=== PATIENT | female | born 1970 | race Caucasian/White ===

== ENCOUNTER 2017-04-19 21:49 | Inpatient (IN) ==
[2017-04-19] MEDS ORDERED: GI Cocktail 40 ML EACH PO ONE (22:33)
[2017-04-19] MEDS ORDERED: Ondansetron 4 MG/2 ML VIAL IVP ONE (22:33)
[2017-04-19] MEDS ORDERED: Pantoprazole 40 MG VIAL IVP ONE (22:33)
[2017-04-19] MEDS ORDERED: 0.9 % Sodium Chloride 1,000 ML IVC ONE (22:33)
[2017-04-19] MEDS ORDERED: *HR* Morphine 2 MG/ML SYRINGE IVP ONE (22:33)
--- NOTE | 2017-04-19 22:36 | Emergency Department Note ---
Disposition Clinical Impression: Atypical chest pain, Hiatal hernia, Status post endoscopy, Hypokalemia Barretts esophagus Qualifiers: Bell's esophagus type: with dysplasia of unspecified degree Qualified Code(s ): K22.719 - Bell's esophagus with dysplasia, unspecified Nausea & vomiting Qualifiers: Vomiting type: unspecified Vomiting Intractability: unspecified Qualified Code( s): R11.2 - Nausea with vomiting, unspecified Disposition: Home, Self-Care Condition: Fair Time of Disposition: 01:53 Chest Pain HPI - General Chief Complaint: ED Chest Pain Stated Complaint: sternum pain has hernia not heart related Time Seen by Provider: 04/19/17 22:21 Source: patient Limitations: no limitations Vital Signs Reviewed: Yes Nursing Notes Reviewed: Yes - History of Present Illness HPI Narrative: 47-year-old female history of Bell's esophagus hiatal hernia, diabetes, hypertension, hyperlipidemia, no history of CAD presents complaining of 8 out of 10, aching burning substernal and epigastric chest pain and abdominal pain. Patient also has a history of a cholecystectomy appendectomy and partial hysterectomy, she states that she was evaluated for chest pain a few days ago, she had an upper endoscopy and biopsy performed by Dr. Perkins this showed evidence of Bell's esophagus, she was treated is treated with a PPI, she states that her pain has been unbearable she try to call Dr. Mckeon's office but is not able to get her pain under control so she presents the emergency department for evaluation she is no history of recent left heart catheter about 2 years and she has been evaluated. Denies fever chills. Cough hemoptysis hematuria hematemesis or melena. Pt complaint: chest pain Onset (ago): day(s) Duration: intermittent Onset: during rest, after eating Pain Location: substernal, epigastric Severity: severe Severity scale (1-10): 10 Quality: aching, sharp Pain Radiation: none Improves with: nothing Worsens with: nothing Associated symptoms: Reports: nausea, vomiting. Denies: diaphoresis, dyspnea, sense of impending doom, fever, cough Treatments prior to arrival chest pain: none - Related Data Home Medications Medication Instructions Recorded Confirmed Cetirizine HCl [All Day Allergy] 10 mg PO DAILY 04/15/17 04/15/17 Dicyclomine [Bentyl] 20 mg PO QID 04/15/17 04/15/17 Duloxetine HCl [Cymbalta] 60 mg PO BID 04/15/17 04/15/17 Ergocalciferol (VITAMIN D2) 50,000 unit PO QWEEK 04/15/17 04/15/17 [Vitamin D2] Fluticasone Propionate Nasal 50 mcg NS DAILY 04/15/17 04/15/17 [Flonase] Gabapentin [Neurontin] 1,600 mg PO HS 04/15/17 04/15/17 Gabapentin [Neurontin] 800 mg PO BID 04/15/17 04/15/17 Insulin ASPART [Novolog Flexpen] 10 - 22 unit SQ ACHS 04/15/17 04/15/17 Insulin Glargine,Hum.rec.anlog 70 unit SQ HS 04/15/17 04/15/17 [Lantus Solostar] Lisinopril/Hydrochlorothiazide 1 tab PO DAILY 04/15/17 04/15/17 [Zestoretic 10-12.5 mg Tablet] Oxycodone HCl/Acetaminophen 1 tab PO BID PRN 04/15/17 04/15/17 [Percocet 5-325 mg Tablet] Pantoprazole Sodium [Protonix] 40 mg PO DAILY 04/15/17 04/15/17 Simvastatin [Zocor] 80 mg PO DAILY 04/15/17 04/15/17 clonazePAM [Klonopin] 0.5 mg PO BID 04/15/17 04/15/17 Previous Rx's Medication Instructions Recorded Ondansetron HCl [Zofran] 4 mg PO Q6H #30 tablet 04/16/17 Allergies Allergy/AdvReac Type Severity Reaction Status Date / Time bupropion [From Wellbutrin] Allergy Hives Verified 04/14/17 22:34 latex Allergy Swelling Verified 04/14/17 22:34 of Lip/Tongue/Throat Medroxyprogesterone Allergy Hives Verified 04/14/17 22:34 [From Provera] All systems ED: reviewed and negative except as stated. Review of Systems: As Per HPI Constitutional: Denies: fever, chills Eyes: Denies: eye pain ENT ED: Denies: ear pain Cardiovascular: Reports: as per HPI, chest pain. Denies: palpitations, dyspnea on exertion, paroxysmal nocturnal dyspnea Gastrointestinal: Reports: as per HPI, abdominal pain, nausea, vomiting. 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 vital signs reviewed and wnl HEENT: NCAT, sclera anicteric Neck: normal inspection, neck is supple, trachea midline Resp: normal chest inspection, CTA bilaterally, no resp distress CV: RRR, no m/g/r GI: Scarring and incisions consistent with previous laparoscopy Soft, mod tenderness to palpation epigastrium, no hepatosplenomegaly, BS x 4 quadrants, negative Bergman's Sign, no tenderness at McBurney' point, Negative Rovsing's : deferred Back: normal inspection, negative CVA bilaterally, no tenderness to palpation Neuro: A&O3, no gross motor or sensory deficits bilaterally MSK: normal inspection, bilateral UE and LE with normal ROM Skin: No rashes, skin warm, dry, intact - General Limitations: no limitations General appearance: alert, in distress Course Course Narrative: 47-year-old female with epigastric discomfort chest pain, recent hiatal hernia and Bell's esophagus was diagnosed, we will give PPI Zofran GI cocktail, basic lab work also treated with morphine IV fluids CBC BMP troponin chest x- ray she states that she had a recent abdominal CT scan with IV and oral contrast that only showed a fatty liver 1 week ago so we will defer CT imaging at this time - Reevaluation(s) Reevaluation #1: Admitted to Dr Stephens for CP admission post Endcscopy possible Dr Perkins consultation, Trop negative no ekg changes, pain improved with dilaudid. Time: 01:51 Vital Signs Temperature 98.0 F 04/19/17 22:04 Pulse Rate 104 04/19/17 22:04 Respiratory Rate 18 04/19/17 22:04 Blood Pressure 169/84 04/19/17 22:04 O2 Sat by Pulse Oximetry 100 09/14/17 22:04 Temperature 98.0 F 04/19/17 22:04 Pulse Rate 97 04/19/17 23:22 Respiratory Rate 18 04/19/17 23:22 Blood Pressure 125/76 04/19/17 23:22 O2 Sat by Pulse Oximetry 99 04/19/17 23:22 Oxygen Delivery Oxygen Delivery Room Air Chest Pain - MDM Narrative Medical decision making narrative: 47-year-old female with chest pain shortness of breath post endoscopy new diagnosis of hiatal hernia pain improved after morphine and Dilaudid and GI cocktail, admitted to medicine service in stable condition - Differential Diagnosis Likely: atypical chest pain, chest pain - Medical Records Medical records reviewed: Yes I reviewed the patient's medical records. - Lab Data Lab results reviewed: Yes I reviewed the patient's lab results. Result diagrams: 04/19/17 23:05 04/19/17 23:05 Lab Results 04/19/17 04/19/17 04/19/17 Range/Units 22:50 23:05 23:05 WBC 9.0 (4.3-11.1) K/mcL RBC 5.02 H (3.82-4.97) M/mcL Hgb 14.2 (11.5-15.4) g/dL Hct 41.8 (35.3-44.9) % MCV 83.3 (83.0-100.0) fL MCH 28.3 (28.0-33.3) pg MCHC 34.0 (31.6-35.5) g/dL RDW 13.0 (11.5-14.5) % Plt Count 272 (140-400) K/mcL MPV 9.5 (9.4-12.4) fL Immature Gran % 0.8 (0-4) % Seg Neutrophils % 63.9 % Lymphocytes % 27.3 % Monocytes % 5.2 % Eosinophils % 2.2 % Basophils % 0.6 % Neutrophils # 5.8 (1.6-8.9) K/mcL Lymphocytes # 2.5 (0.6-4.6) K/mcL Monocytes # 0.5 (0.0-1.3) K/mcL Eosinophils # 0.2 (0.0-0.6) K/mcL Basophils # 0.1 (0.0-0.2) K/mcL VBG pH (7.32-7.42) pH Units VBG pCO2 (41-51) mmHg VBG pO2 (25-40) mmHg VBG HCO3 (21-27) mEq/L Sodium 138 (136-145) mEq/L Potassium 3.0 L (3.5-4.5) mEq/L Chloride 101 (98-109) mEq/L Carbon Dioxide 30 H (19-29) mEq/L BUN 5 L (7-20) mg/dL Creatinine 0.78 (0.57-1.11) mg/dL Est GFR ( Amer) > 60 (> 60) Est GFR (Non-Af Amer) > 60 (> 60) BUN/Creatinine Ratio 6 (6-26) Glucose 216 H (70-99) mg/dL Calculated Osmolality 290 (280-300) Calcium 9.6 (8.6-10.8) mg/dL Total Bilirubin 0.5 (0.2-1.2) mg/dL Direct Bilirubin 0.2 (0.0-0.5) mg/dL Indirect Bilirubin 0.3 (0.0-1.2) mg/dL AST 16 (5-34) Units/L ALT 20 (0-55) Units/L Alkaline Phosphatase 66 (38-126) Units/L Troponin I (0-0.03) ng/mL Serum Total Protein 6.3 (6.0-8.3) g/dL Albumin 3.3 L (3.5-5.0) g/dL Globulin 3.0 (2.4-3.5) g/dL Albumin/Globulin Ratio 1.1 (1.1-2.2) Lipase 13 (8-78) Units/L Beta-Hydroxybutyric Acd (0.02-0.27) mmol/L Urine Color Yellow (Yellow) Urine Clarity Cloudy A (Clear) Urine pH 7.0 (5.0-8.0) pH Units Ur Specific Foster 1.019 (1.010-1.025) Urine Protein Negative (Neg-Trace) mg/dL Urine Glucose (UA) >=1000 H (Normal) mg/dL Urine Ketones Negative (Negative) mg/dL Urine Blood Negative (Negative) Urine Nitrite Negative (Negative) Urine Bilirubin Negative (Negative) Urine Urobilinogen Normal (Normal) mg/dL Ur Leukocyte Esterase Negative (Negative) Urine Microscopic RBC 0-3 (0-3) per hpf Urine Microscopic WBC 0-3 (0-3) per hpf Ur Squamous Epith Cells Many H (None-Few) per lpf Urine Bacteria None Seen (None-Few) per hpf Hyaline Casts None Seen (None-Few) per lpf Ur Culture Indicated? NO (NO) 04/19/17 04/19/17 04/19/17 Range/Units 23:05 23:05 23:05 WBC (4.3-11.1) K/mcL RBC (3.82-4.97) M/mcL Hgb (11.5-15.4) g/dL Hct (35.3-44.9) % MCV (83.0-100.0) fL MCH (28.0-33.3) pg MCHC (31.6-35.5) g/dL RDW (11.5-14.5) % Plt Count (140-400) K/mcL MPV (9.4-12.4) fL Immature Gran % (0-4) % Seg Neutrophils % % Lymphocytes % % Monocytes % % Eosinophils % % Basophils % % Neutrophils # (1.6-8.9) K/mcL Lymphocytes # (0.6-4.6) K/mcL Monocytes # (0.0-1.3) K/mcL Eosinophils # (0.0-0.6) K/mcL Basophils # (0.0-0.2) K/mcL VBG pH 7.45 H (7.32-7.42) pH Units VBG pCO2 48 (41-51) mmHg VBG pO2 42 H (25-40) mmHg VBG HCO3 33.4 H (21-27) mEq/L Sodium (136-145) mEq/L Potassium (3.5-4.5) mEq/L Chloride (98-109) mEq/L Carbon Dioxide (19-29) mEq/L BUN (7-20) mg/dL Creatinine (0.57-1.11) mg/dL Est GFR ( Amer) (> 60) Est GFR (Non-Af Amer) (> 60) BUN/Creatinine Ratio (6-26) Glucose (70-99) mg/dL Calculated Osmolality (280-300) Calcium (8.6-10.8) mg/dL Total Bilirubin (0.2-1.2) mg/dL Direct Bilirubin (0.0-0.5) mg/dL Indirect Bilirubin (0.0-1.2) mg/dL AST (5-34) Units/L ALT (0-55) Units/L Alkaline Phosphatase (38-126) Units/L Troponin I 0.00 (0-0.03) ng/mL Serum Total Protein (6.0-8.3) g/dL Albumin (3.5-5.0) g/dL Globulin (2.4-3.5) g/dL Albumin/Globulin Ratio (1.1-2.2) Lipase (8-78) Units/L Beta-Hydroxybutyric Acd 0.20 (0.02-0.27) mmol/L Urine Color (Yellow) Urine Clarity (Clear) Urine pH (5.0-8.0) pH Units Ur Specific Foster (1.010-1.025) Urine Protein (Neg-Trace) mg/dL Urine Glucose (UA) (Normal) mg/dL Urine Ketones (Negative) mg/dL Urine Blood (Negative) Urine Nitrite (Negative) Urine Bilirubin (Negative) Urine Urobilinogen (Normal) mg/dL Ur Leukocyte Esterase (Negative) Urine Microscopic RBC (0-3) per hpf Urine Microscopic WBC (0-3) per hpf Ur Squamous Epith Cells (None-Few) per lpf Urine Bacteria (None-Few) per hpf Hyaline Casts (None-Few) per lpf Ur Culture Indicated? (NO) - Radiology Data Radiology results reviewed: Yes I reviewed the patient's radiology results. Chest X-Ray 04/20/17 00:09 IMPRESSION: No acute abnormality. D/ / Umer Allan / Umer Allan Interpreting Provider: Umer Allan - EKG Data EKG attestation: Yes I reviewed and interpreted this EKG. EKG shows normal: sinus rhythm Rate: normal (Sinus bradycardia rate of 53 MS 162 QRS [address] segment elevations or depressions no changes of ischemia compared to previous EKG April 2017) Heart Score - Score History: Moderately Suspicious EKG: Non Specific repolarisation Disturbance Age: 45-65 Risk Factors: Equal/Greater than 3 risk factor or history of atherosclerotic disease Troponin: Less than normal limit HEART Score Total: 5 Attestation Statement - Attestation Attestation: I, Jose Garnett MD, personally evaluated this patient and discussed their management with the resident physician. I reviewed the resident's note and agree with the documented findings, medical decision making, and plan of care. 47-year-old female presents to the emergency department complaining of severe upper epigastric pain radiating up into the lower substernal region. Symptoms started about 2 weeks ago. She was admitted to the hospital about one week ago. She had endoscopy and was diagnosed with Bell's esophagus and hiatal hernia. She also had some biopsies. She returns here tonight complaining of persistent pain which is no better despite treatment. She also complains of nausea and vomiting. No fever. Some blood in the emesis several days ago but none now. No bowel movement for the past 3-4 days. On examination patient is a well-developed well-nourished female in no acute distress. She is alert and oriented 3. There is no cyanosis or diaphoresis. Breath sounds are clear and equal bilaterally. Heart regular rate and rhythm. Abdomen is soft with normal bowel sounds. There is moderate and upper epigastric tenderness on direct palpation. No guarding or rebound tenderness. Labs reviewed. Chest x-ray negative. The hospitalist, Dr. Stephens, was consulted and accepted admission of the patient.
[2017-04-19 23:11] LABS: Basophils # 0.1 K/mcL (0.0-0.2); Basophils % 0.6 %; Eosinophils # 0.2 K/mcL (0.0-0.6); Eosinophils % 2.2 %; Hematocrit 41.8 % (35.3-44.9); Hemoglobin 14.2 g/dL (11.5-15.4); Immature Granulocytes % 0.8 % (0-4); Lymphocytes # 2.5 K/mcL (0.6-4.6); Lymphocytes % 27.3 %; Mean Corpuscular Hemoglobin 28.3 pg (28.0-33.3); Mean Corpuscular Volume 83.3 fL (83.0-100.0); Mean Platelet Volume 9.5 fL (9.4-12.4); Monocytes # 0.5 K/mcL (0.0-1.3); Monocytes % 5.2 %; Neutrophils # 5.8 K/mcL (1.6-8.9); Platelet Count 272 K/mcL (140-400); Red Blood Count 5.02 M/mcL (3.82-4.97); Segmented Neutrophils % 63.9 %
[2017-04-19 23:12] LABS: VBG HCO3 33.4 mEq/L (21-27); VBG PH 7.45 pH Units (7.32-7.42)
[2017-04-19 23:21] LABS: Bilirubin,Urine Negative (Negative); Blood,Urine Negative (Negative); Clarity,Urine Cloudy (Clear); Color,Urine Yellow (Yellow); Glucose,Urine (UA) >=1000 mg/dL (Normal); Ketones,Urine Negative (Negative); Leukocyte Esterase,Urine Negative (Negative); Nitrite,Urine Negative (Negative); Protein,Urine Negative (Neg-Trace); Specific Gravity,Urine 1.019 (1.010-1.025); Urobilinogen,Urine Normal (Normal)
[2017-04-19 23:23] LABS: Bacteria,Urine None Seen per hpf (None-Few); Hyaline Casts,Urine None Seen per lpf (None-Few); RBC,Urine 0-3 per hpf (0-3); Squamous Epithelial Cell,Urine Many per lpf (None-Few); WBC,Urine 0-3 per hpf (0-3)
[2017-04-19 23:30] LABS: Alanine Aminotransferase 20 Units/L (0-55); Albumin 3.3 g/dL (3.5-5.0); Albumin/Globulin Ratio 1.1 (1.1-2.2); Alkaline Phosphatase 66 Units/L (38-126); Aspartate Amino Transferase 16 Units/L (5-34); BUN/Creatinine Ratio 6 (6-26); Bilirubin,Direct 0.2 mg/dL (0.0-0.5); Bilirubin,Indirect 0.3 mg/dL (0.0-1.2); Bilirubin,Total 0.5 mg/dL (0.2-1.2); Calcium 9.6 mg/dL (8.6-10.8); Carbon Dioxide 30 mEq/L (19-29); Chloride 101 mEq/L (98-109); Glucose 216 mg/dL (70-99); Lipase 13 Units/L (8-78); Osmolality,Calculated 290 (280-300); Sodium 138 mEq/L (136-145); Total Protein 6.3 g/dL (6.0-8.3); eGFR For African Americans > 60 (> 60); eGFR For Non-African Americans > 60 (> 60)
[2017-04-19 23:32] LABS: Blood Urea Nitrogen 5 mg/dL (7-20)
[2017-04-20] MEDS ORDERED: Potassium Chloride 40 MEQ, Lidocaine 1% 2 ML in D5% in Water 500 ML IVPB ONE (00:10)
[2017-04-20] MEDS ORDERED: Ondansetron 4 MG/2 ML VIAL IVP ONE ×2 (00:46→03:33)
[2017-04-20] MEDS ORDERED: *HR* HYDROmorphone (PF) 1 MG/ML SYRINGE IVP ONE (00:46)
[2017-04-20] MEDS ORDERED: 0.9 % Sodium Chloride 1,000 ML IVC ONE (00:57)
[2017-04-20] MEDS ORDERED: *HR* Morphine 2 MG/ML SYRINGE IVP PRN (03:33)
[2017-04-20] MEDS ORDERED: Ondansetron 4 MG/2 ML VIAL IVP PRN ×2 (03:33→05:19)
[2017-04-20] MEDS ORDERED: 0.9 % Sodium Chloride w KCl 20 MEQ/1,000 ML MLS IVC SCH ×2 (03:45→06:29)
[2017-04-20 04:35] LABS: BUN/Creatinine Ratio 6 (6-26); Calcium 8.5 mg/dL (8.6-10.8); Carbon Dioxide 24 mEq/L (19-29); Chloride 106 mEq/L (98-109); Glucose 182 mg/dL (70-99); Osmolality,Calculated 288 (280-300); Potassium 3.6 mEq/L (3.5-4.5); Sodium 138 mEq/L (136-145); eGFR For African Americans > 60 (> 60); eGFR For Non-African Americans > 60 (> 60)
[2017-04-20 04:36] LABS: Blood Urea Nitrogen 4 mg/dL (7-20)
[2017-04-20] MEDS ORDERED: Pantoprazole 40 MG in 0.9 % Sodium Chloride Mini Bag 100 ML IVPB SCH (05:15)
[2017-04-20] MEDS ORDERED: Naloxone 0.4 MG/ML INJ IVP PRN (05:19)
[2017-04-20] MEDS ORDERED: Acetaminophen 325 MG TABLET PO PRN (05:19)
--- NOTE | 2017-04-20 05:19 | Internal Med History&Physical ---
<Van Granger - Last Filed: 04/20/17 05:30> Date of Encounter: 04/20/17 Time of Encounter: 05:00 Assessment and Plan (1) Bell's esophagus determined by endoscopy Current visit: No Status: Acute Patient was diagnosed with Bell's esophagus after EGD on 04/16/17. Patient has had no relief of her symptoms have been persisting for 2 weeks despite being sent home on Zofran. She continues to have significant nausea and vomiting that make it difficult for her to eat or drink, she continues to have a feeling of food being stuck in her lower esophagus, she also complains of severe, 10/10 abdominal pain described as burning radiates into her sternum and belly. 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 She was recently hospitalized and underwent EGD on Sunday that showed Bell's esophagus very patient has continued to have nausea and vomiting that has not been responding to Zofran. She reports having episodes of hematemesis prior to her EGD, but no observable hematemesis since. We will continue patient on Zofran Carafate 4 times a day We will add Phenergan Qualifiers: Vomiting type: unspecified Vomiting Intractability: unspecified Qualified Code(s): R11.2 - Nausea with vomiting, unspecified (3) Hiatal hernia Current visit: Yes Status: Acute Small hiatal hernia identified on EGD on 04/16/17. Patient taking pantoprazole at home. We will continue pantoprazole IV Tums as needed for continued GERD Carafate 4 times a day (4) DVT prophylaxis Current visit: Yes Status: Acute We will place patient on 5000 units heparin subcutaneous twice a day (5) Diabetes mellitus type 2 in obese Current visit: No Status: Chronic Patient diabetic and reports using insulin sliding scale as well as up to 70 units Lantus at night. We will continue insulin sliding scale and 14 units Levemir at bedtime Internal Medicine - H&P: HPI Chief complaint: Abdominal pain and nausea Admitted From: Home Plans for Post Hospital Care: Home History of present illness: Ms. Latif is a 47 year old female with prior medical history of diabetes mellitus, depression, and recently diagnosed Bell's esophagus who presents to [facility] because of continued intractable abdominal pain and nausea. She states his pain has been going on for 2 weeks she had been in the hospital last weekend for the same thing and underwent EGD with Dr. Perkins. She was found to have Bell's esophagus and a small hiatal hernia at that time and was discharged home with Zofran. Since that time she has continued to have nausea and extreme abdominal pain. She describes it as a burning sensation in her abdomen radiating substernally and into her lower abdomen. She states the pain is 10/10 in severity and is made worse by eating. She feels a constant nausea and has no appetite. She is been chewing gum in order to keep him off warm whenever she tries to eat or drink anything she feels that sick in her throat and causing her significant pain. She reports that she had a 50 pound weight loss between the months of June and September and has since just had a weight this fluctuated 5 or so pounds. She reports having some emesis with her nausea but no hematemesis recently that she is aware of. She states that last Sunday (prior to her EGD) that she did vomit some bright red blood and coffee grounds. She denies having any diarrhea and states that she has been having constipation with last bowel movement being Sunday. She denies hematochezia or melena Past Med Surg Social Fam HX - Past Medical History Medical history: diabetes, hyperlipidemia, hypertension Psychiatric history: anxiety, depression - Past Surgical History Surgical History: appendectomy, cholecystectomy - Social History Smoking Status: Current every day smoker Packs per day: 1 Smokeless Tobacco Status: No Alcohol use: none Drug use: none - Family History Mother Living Status: Still Living Hx Family Cardiac Disorders: No Hx Family Respiratory Disorders: No Hx Family Cancer: Yes (Melanoma) Hx Family GI Disorders: Yes (Esophageal sx) Hx Family Endocrine Disorder: Yes (DM) Hx Family Neurologic Disorders: No Hx Family HEENT Disorders: No Hx Family Autoimmune Disorders: No Father Living Status: Still Living Hx Family Cardiac Disorders: No Hx Family Respiratory Disorders: Yes (COPD) Hx Family Cancer: No Hx Family GI Disorders: No Hx Family Endocrine Disorder: No Hx Family Neuromuscular Disorders: No Hx Family Neurologic Disorders: No Hx Family HEENT Disorders: No Hx Family Autoimmune Disorders: No Hx Family Medical Disorders: Yes (dementia) Internal Medicine - H&P: Meds Cetirizine HCl [All Day Allergy] 10 mg PO DAILY 04/15/17 [History] Duloxetine HCl [Cymbalta] 60 mg PO BID 04/15/17 [History] Ergocalciferol (VITAMIN D2) [Vitamin D2] 50,000 unit PO QWEEK 04/15/17 [History] Fluticasone Propionate Nasal [Flonase] 50 mcg NS DAILY 04/15/17 [History] Gabapentin [Neurontin] 1,600 mg PO HS 04/15/17 [History] Gabapentin [Neurontin] 800 mg PO BID 04/15/17 [History] Insulin ASPART [Novolog Flexpen] unit SQ ACHS 04/15/17 [History] Insulin Glargine,Hum.rec.anlog [Lantus Solostar] 70 unit SQ HS 04/15/17 [History ] Lisinopril/Hydrochlorothiazide [Zestoretic 10-12.5 mg Tablet] 1 tab PO DAILY 05/22 [History] Oxycodone HCl/Acetaminophen [Percocet 5-325 mg Tablet] 1 tab PO BID PRN [History] Pantoprazole Sodium [Protonix] 40 mg PO DAILY 04/15/17 [History] Simvastatin [Zocor] 80 mg PO DAILY 04/15/17 [History] clonazePAM [Klonopin] 0.5 mg PO BID 04/15/17 [History] Ondansetron HCl [Zofran] 4 mg PO Q6H #30 tablet 04/16/17 [Rx] 3 Allergy/AdvReac Type Severity Reaction Status Date / Time bupropion [From Wellbutrin] Allergy Hives Verified 04/14/17 22:34 latex Allergy Swelling Verified 04/14/17 22:34 of Lip/Tongue/Throat Medroxyprogesterone Allergy Hives Verified 04/14/17 22:34 [From Provera] Review of systems: Gen: Denies fever, denies chills, reports weightloss, denies weakness, denies fatigue CV: reports chest pain as per HPI, denies exertional chest pain or dyspnea, denies palpitations Resp: Reports mild episodic shortness of breath related to asthma, denies dyspnea, denies pleuritic pain, denies coughing, denies changes in phlegm production, denies wheeze GI: Reports nausea and vomiting, reports significant abdominal pain as per history of present illness, reports constipation, denies diarrhea, denies hematochezia, denies melena, denies hematemesis MSK: denies arthralgia, denies muscle weakness Neuro: Denies headache, denies confusion, denies focal weakness, denies numbness , denies tingling, denies vision changes Skin: Denies bruising, denies rash : Denies flank pain, denies dysuria, denies hematuria - Constitutional Vitals: Temp Pulse Resp BP Pulse Ox 97.7 F 58 17 153/87 96 04/20/17 03:36 04/20/17 03:36 04/20/17 03:36 04/20/17 03:36 04/20/17 03:36 Exam: General: Cooperative, pleasant, no acute distress, alert and oriented 3, answers questions appropriately HEENT: Normocephalic, atraumatic, neck supple, trachea midline, Conjunctiva pink , sclera anicteric, oral mucosa moist, no orophargeal erythema or exudates Respiratory: No accessory muscle usage, clear to auscultation bilaterally, no wheezes/rhonchi/rales appreciated Cardiovascular: Regular rate and rhythm, S1 and S2 present, no murmurs/rubs/ gallops/clicks appreciated GI/abdominal: Nondistended, tenderness to palpation diffusely but significantly worse in the epigastrium and upper right quadrant, soft, normal bowel sounds, no peritoneal signs Extremities: No calf tenderness, noncyanotic, no pedal edema appreciated, warm, lower extremity pulses palpable and symmetrical Neurological: Alert and oriented 3, no facial droop, no focal deficits Skin: Dry, intact, normal color Internal Med - H&P Results - Labs CBC & Chem 7: 04/19/17 23:05 04/20/17 04:06 Labs: BMP 04/20/17 04:06 Sodium 138 Potassium 3.6 Chloride 106 Carbon Dioxide 24 BUN 4 L Creatinine 0.66 Glucose 182 H Calcium 8.5 L <Angelo-Tono Whyte - Last Filed: 09/15/17 06:14> Date of Encounter: 04/20/17 Internal Medicine - H&P: HPI History of present illness: Ms. Latif is a 47 year old female All Systems PM: A 10-system review of systems was performed and is negative for pertinent findings except as documented above in the HPI. - Constitutional Vitals: Temp Pulse Resp BP Pulse Ox 97.7 F 58 17 153/87 96 04/20/17 03:36 04/20/17 03:36 04/20/17 03:36 04/20/17 03:36 04/20/17 03:36 Internal Med - H&P Results - Labs CBC & Chem 7: 04/19/17 23:05 04/20/17 04:06 Labs: BMP 04/20/17 04:06 Sodium 138 Potassium 3.6 Chloride 106 Carbon Dioxide 24 BUN 4 L Creatinine 0.66 Glucose 182 H Calcium 8.5 L - Attending Attestation I examined this patient and my medical decision-making was reviewed with the Resident Physician. I agree with the documented findings, disposition and treatment plan as described except to the extent set forth below. Patient is a 47-year-old female with past medical history of diabetes, hyperlipidemia and hypertension and anxiety. She presents with complaints of abdominal pain and nausea. She recently underwent EGD and was found to have Bell's esophagus and a small hiatal hernia. Patient was discharged home to [facility]. She is continued to have nausea and severe abdominal pain. He describes it as a burning pain. No other acute complaints. Patient is being admitted for intractable abdominal pain and nausea. Continue IV Protonix.
[2017-04-20] MEDS ORDERED: Dextrose Gel 15 GM PO PRN ×2 (05:25)
[2017-04-20] MEDS ORDERED: D5% in Water 1,000 ML IVC PRN (05:25)
[2017-04-20] MEDS ORDERED: *HR* Dextrose 50 % in Water (Syg) 50 ML SYRINGE IVP PRN (05:25)
[2017-04-20] MEDS ORDERED: *HR* OxyCODONE/APAP 5/325 TABLET PO PRN (05:26)
[2017-04-20] MEDS: *HR* Heparin 5,000 UNIT/ML VIAL SQ SCH ×2 (06:07→16:37)
[2017-04-20] MEDS: Insulin LISPRO 300 UNITS/3 ML VIAL SQ SCH ×3 (06:08→18:17)
[2017-04-20] MEDS: *HR* Morphine 2 MG/ML SYRINGE IVP PRN ×3 (08:40→21:29)
[2017-04-20] MEDS: clonazePAM 0.5 MG TABLET PO SCH ×2 (08:43→21:29)
[2017-04-20] MEDS: Gabapentin 400 MG CAPSULE PO SCH ×2 (08:43→21:25)
[2017-04-20] MEDS: Fluticasone Propionate Nasal 50 MCG/SPRAY BOTTLE NS SCH (08:43)
[2017-04-20] MEDS: Loratadine 10 MG TABLET PO SCH (08:43)
[2017-04-20] MEDS: Sucralfate 1 GM TABLET PO SCH ×4 (08:43→21:28)
[2017-04-20] MEDS ORDERED: Tetracaine/Benzocaine/Butamben 200MG/SPRAY (100SPY/BOT) ONE (08:46)
--- NOTE | 2017-04-20 09:15 | Anesthesia Evaluation PreOp ---
Date of Encounter: 04/20/17 Time of Encounter: 09:13 - Past History Planned Operation: EGD Cardiac History: HTN, Hyperlipidemia Pulmonary History: Smoker (20+ years), Asthma GROUND LAYER History: Denies Any Significant HX Other Medical History: Hepatic (fatty liver), Diabetes Type II, GERD, Other ( anxiety/depression) Anesthesia History: No Prior Anesthetic Complications, Past Anesthesia ( hysterectomy) Alcohol Use: none Drug use: none Medications and Allergies Cetirizine HCl [All Day Allergy] 10 mg PO DAILY 04/15/17 [History] Duloxetine HCl [Cymbalta] 60 mg PO BID 04/15/17 [History] Ergocalciferol (VITAMIN D2) [Vitamin D2] 50,000 unit PO QWEEK 04/15/17 [History] Fluticasone Propionate Nasal [Flonase] 50 mcg NS DAILY 04/15/17 [History] Gabapentin [Neurontin] 1,600 mg PO HS 04/15/17 [History] Gabapentin [Neurontin] 800 mg PO BID 04/15/17 [History] Insulin ASPART [Novolog Flexpen] 0 unit SQ ACHS PRN 04/15/17 [History] Insulin Glargine,Hum.rec.anlog [Lantus Solostar] 70 unit SQ HS 04/15/17 [History ] Lisinopril/Hydrochlorothiazide [Zestoretic 10-12.5 mg Tablet] 1 tab PO DAILY 05/22 [History] Oxycodone HCl/Acetaminophen [Percocet 5-325 mg Tablet] 1 tab PO BID PRN [History] Pantoprazole Sodium [Protonix] 40 mg PO DAILY 04/15/17 [History] Simvastatin [Zocor] 80 mg PO DAILY 04/15/17 [History] clonazePAM [Klonopin] 0.5 mg PO BID 04/15/17 [History] Ondansetron HCl [Zofran] 4 mg PO Q6H #30 tablet 04/16/17 [Rx] 3 Allergy/AdvReac Type Severity Reaction Status Date / Time bupropion [From Wellbutrin] Allergy Hives Verified 04/14/17 22:34 latex Allergy Swelling Verified 04/14/17 22:34 of Lip/Tongue/Throat Medroxyprogesterone Allergy Hives Verified 04/14/17 22:34 [From Provera] - Meds/Allergy Pre-op Review Medications Reviewed: Yes Allergies Reviewed: Yes Beta Blockers on Current Med List: No Anesthesia Results - Labs 04/19/17 23:05 04/20/17 04:06 - Imaging EKG: report reviewed (04/14/2017 SR) Anesthesia Exam Vital Signs/O2 Sat/Glucose, Most Recent Temp Pulse Resp BP Pulse Ox 97.8 F 49 14 149/81 98 04/20/17 08:12 04/20/17 08:12 04/20/17 08:12 04/20/17 08:12 04/20/17 08:47 Blood Glucose* 150 Height: 5'1''/1.54 m Weight: 131 lbs/59.421 kg NPO (# of Hours): 8 Pain Scale: 8 (epigastric) Pain Scale Used: Numeric (1 - 10) - HEENT Pupil (Motor): EOMI Mallampati: II Teeth: Normal Oral Opening: Greater than 3 - GROUND LAYER LOC: Oriented GROUND LAYER Motor: Normal RUE, Normal LUE, Normal RLE, Normal LLE, Normal Face GROUND LAYER Sensory: Normal: RUE, LUE, Face, Deficit: RLE, LLE - Cardiac Rhythm: Regular Murmur: None - Pulmonary Breath Sounds: bilateral Clear Respiratory Effort: Symmetrical Anesthesia Assess/Plan ASA Score: 3 Modified Katey Scale for Level of Consciousness: Cooperative, oriented, and tranquil Anesthetic Plan: MAC Monitoring Plan: Standard Monitors
--- NOTE | 2017-04-20 09:19 | Gastroenterology Consult Note ---
Date of Encounter: 04/20/17 Time of Encounter: 09:04 - Assessment and plan (1) Nausea & vomiting Current Visit: Yes Status: Acute Assessment and plan: endoscopy on 04/16/17 that showed Barretts esophagus, small hiatal hernia, normal duodenum and normal mucosa in the stomach. biopsies were taken. pathology report form esophagus and stomach show no abnormality and was negative for H.Pylori. Shatzki's ring also seen on EGD, which is likely contributing to her symptoms of nausea and vomiting. Plan: NPO diet EGD with dilation later today. continue to monitor, continue home PPI. Qualifiers: Vomiting type: unspecified Vomiting Intractability: unspecified Qualified Code(s): R11.2 - Nausea with vomiting, unspecified (2) Bell's esophagus determined by endoscopy Current Visit: No Status: Acute Assessment and plan: continue to monitor. continue home PPI medication outpatient follow up with GI with follow up EGD as recommended per GI. - Time Spent With Patient Total time spent is greater than 50% in coordination of care (as documented) at patient's floor/unit and/or counseling patient: GI History of Present Illness - Data of Consult Patient: known to practice within the last 3 years Consult date: 04/20/17 Requesting Physician: Serena Sullivan MD - Consult Narrative Reason for consult: nausea and vomiting History of present illness: Ms. Latif is a 47 year old female with PMHx of DM, depression, Barretts esophagus, hiatal hernia, esophagitis, HLD, HTN, anxiety. patient arrived to [facility] on 04/20/17 with CC of intractable abdominal pain with nausea x2 weeks. she states she has a burning sensation in her abdomen that radiates into her chest, and describes the pain as 8/10. currently. she states that her abdominal pain has been ongoing since her last hospitalization. she admits to nausea and vomiting, with decreased appetite. prior to has last EGD last week, she was having multiple episodes of vomiting and had noticed coffee ground emesis. she denies hematochezia or melena. she denies hematemesisi. she denies chest pain, admits to intermittent shortness of breath from her pain. she denies hematuria. patient recently had endoscopy on 04/16/17 that showed Barretts esophagus, small hiatal hernia, normal duodenum and normal mucosa in the stomach. biopsies were taken. pathology report form esophagus and stomach show no abnormality and was negative for H.Pylori. Past Med Surg Social Fam HX - Past Medical History Medical history: diabetes, hyperlipidemia, hypertension Psychiatric history: anxiety, depression - Past Surgical History Surgical History: appendectomy, cholecystectomy - Social History Smoking Status: Current every day smoker Packs per day: 1 Smokeless Tobacco Status: No Alcohol use: none Drug use: none - Family History Mother Living Status: Still Living Hx Family Cardiac Disorders: No Hx Family Respiratory Disorders: No Hx Family Cancer: Yes (Melanoma) Hx Family GI Disorders: Yes (Esophageal sx) Hx Family Endocrine Disorder: Yes (DM) Hx Family Neurologic Disorders: No Hx Family HEENT Disorders: No Hx Family Autoimmune Disorders: No Father Living Status: Still Living Hx Family Cardiac Disorders: No Hx Family Respiratory Disorders: Yes (COPD) Hx Family Cancer: No Hx Family GI Disorders: No Hx Family Endocrine Disorder: No Hx Family Neuromuscular Disorders: No Hx Family Neurologic Disorders: No Hx Family HEENT Disorders: No Hx Family Autoimmune Disorders: No Hx Family Medical Disorders: Yes (dementia) All systems PM: reviewed and no additional remarkable complaints except as stated - Constitutional Vitals: Temp Pulse Resp BP Pulse Ox 97.8 F 49 14 149/81 98 04/20/17 08:12 04/20/17 08:12 04/20/17 08:12 04/20/17 08:12 04/20/17 08:47 General appearance: Present: A&O X 3, pleasant, no acute distress, answers questions appropriately - Head Head exam: Present: atraumatic, normocephalic - Neck Neck exam general surgery: Present: supple, trachea midline - Respiratory Additional comments: mild rales heard on lower lobes bilaterally. - Cardiovascular Cardiovascular exam: Present: RRR, +S1, +S2 - GI/Abdominal GI/Abdominal exam: Present: distended, soft Additional comments: tenderness in right upper quadrant, epigastric, and mid abdomen above the umbilicus. - Extremities Exam Extremities exam: Absent: cyanotic, pedal edema - Psychiatric Psychiatric exam: Present: normal affect, normal mood - Skin Skin exam: Present: intact Results - Labs CBC & Chem 7: 04/19/17 23:05 04/20/17 04:06 Labs: Last Result Calcium 8.5 mg/dL (8.6-10.8) L 04/20/17 04:06 Troponin I 0.00 ng/mL (0-0.03) 04/19/17 23:05 Entire Visit Hgb 14.2 g/dL (11.5-15.4) 04/19/17 23:05 Hct 41.8 % (35.3-44.9) 04/19/17 23:05 Total Bilirubin 0.5 mg/dL (0.2-1.2) 04/19/17 23:05 AST 16 Units/L (5-34) 04/19/17 23:05 ALT 20 Units/L (0-55) 04/19/17 23:05 Lipase 13 Units/L (8-78) 04/19/17 23:05 Consult Discharge Plan - Plan Referrals: Colleen Francis CNP [Primary Care Provider] -
[2017-04-20] MEDS ORDERED: Tetracaine/Benzocaine/Butamben 200MG/SPRAY (100SPY/BOT) MM ONE (09:28)
--- NOTE | 2017-04-20 12:38 | Event Note ---
Date of Encounter: 04/20/17 Time of Encounter: 12:36 Patient is a 47y/o female admitted for severe abdominal pain, nausea, and vomiting. She was seen by GI and underwent EGD with dilation of Schatzki ring She reports of persistent abd pain with associated nausea will continue IV pain medications, antiemetics clear liquid diet and will advance to soft as tolerated Will monitor overnight and likely d/c in am if remains clinically stable.
[2017-04-20] MEDS: *HR* Promethazine 25 MG/ML VIAL IVP PRN ×2 (12:59→21:29)
[2017-04-20] MEDS ORDERED: Sennosides 8.6 MG TABLET PO PRN (16:56)
[2017-04-20] MEDS ORDERED: Insulin DETEMIR 100 UNIT/ML X5UNITS SQ SCH (21:00)
[2017-04-20] MEDS ORDERED: Gabapentin 400 MG CAPSULE PO SCH (21:00)
[2017-04-21] MEDS: Insulin LISPRO 300 UNITS/3 ML VIAL SQ SCH ×4 (00:58→12:00)
[2017-04-21 04:33] LABS: Basophils # 0.1 K/mcL (0.0-0.2); Basophils % 0.8 %; Eosinophils # 0.2 K/mcL (0.0-0.6); Eosinophils % 3.2 %; Hematocrit 44.4 % (35.3-44.9); Hemoglobin 14.9 g/dL (11.5-15.4); Immature Granulocytes % 0.7 % (0-4); Lymphocytes # 2.5 K/mcL (0.6-4.6); Lymphocytes % 34.5 %; Mean Corpuscular HGB Conc 33.6 g/dL (31.6-35.5); Mean Corpuscular Hemoglobin 28.4 pg (28.0-33.3); Mean Corpuscular Volume 84.7 fL (83.0-100.0); Monocytes # 0.5 K/mcL (0.0-1.3); Monocytes % 6.5 %; Platelet Count 290 K/mcL (140-400); Red Blood Count 5.24 M/mcL (3.82-4.97); Red Cell Distribution Width 13.1 % (11.5-14.5); Segmented Neutrophils % 54.3 %
[2017-04-21 04:49] LABS: BUN/Creatinine Ratio 8 (6-26); Calcium 8.9 mg/dL (8.6-10.8); Carbon Dioxide 24 mEq/L (19-29); Chloride 107 mEq/L (98-109); Glucose 69 mg/dL (70-99); Osmolality,Calculated 284 (280-300); Sodium 139 mEq/L (136-145); eGFR For African Americans > 60 (> 60); eGFR For Non-African Americans > 60 (> 60)
[2017-04-21 04:50] LABS: Blood Urea Nitrogen 5 mg/dL (7-20); Potassium 3.2 mEq/L (3.5-4.5)
[2017-04-21] MEDS: *HR* Heparin 5,000 UNIT/ML VIAL SQ SCH (06:27)
[2017-04-21] MEDS: clonazePAM 0.5 MG TABLET PO SCH (09:03)
[2017-04-21] MEDS: Loratadine 10 MG TABLET PO SCH (09:03)
[2017-04-21] MEDS: Gabapentin 400 MG CAPSULE PO SCH (09:04)
[2017-04-21] MEDS: Fluticasone Propionate Nasal 50 MCG/SPRAY BOTTLE NS SCH (09:04)
[2017-04-21] MEDS: *HR* Promethazine 25 MG/ML VIAL IVP PRN (09:28)
[2017-04-21] MEDS: *HR* Morphine 2 MG/ML SYRINGE IVP PRN (09:30)
[2017-04-21] MEDS: Sucralfate 1 GM TABLET PO SCH (10:49)
[2017-04-21 11:57] VITALS: BP 129/89
--- NOTE | 2017-04-21 13:39 | Discharge Summary ---
Date of Encounter: 04/21/17 Time of Encounter: 13:35 - Discharge Diagnosis (1) Nausea & vomiting Priority: Primary Status: Acute Qualifiers: Vomiting type: unspecified Vomiting Intractability: unspecified Qualified Code(s): R11.2 - Nausea with vomiting, unspecified (2) Abdominal pain Priority: Primary Status: Acute Qualifiers: Abdominal location: epigastric Qualified Code(s): R10.13 - Epigastric pain (3) Diabetes mellitus type 2 in obese Priority: Secondary Status: Chronic (4) Bell's esophagus determined by endoscopy Priority: Secondary Status: Acute (5) DVT prophylaxis Priority: Secondary Status: Acute - Discharge Medications Prescriptions: Oxycodone HCl/Acetaminophen [Percocet 5-325 mg Tablet] 1 tab PO BID PRN #10 PRN Reason: Severe Pain Sucralfate [Carafate] 1 gm PO QIDAC #40 tablet Home Medications: Cetirizine HCl [All Day Allergy] 10 mg PO DAILY 04/15/17 [History] Duloxetine HCl [Cymbalta] 60 mg PO BID 04/15/17 [History] Ergocalciferol (VITAMIN D2) [Vitamin D2] 50,000 unit PO QWEEK 04/15/17 [History] Fluticasone Propionate Nasal [Flonase] 50 mcg NS DAILY 04/15/17 [History] Gabapentin [Neurontin] 1,600 mg PO HS 04/15/17 [History] Gabapentin [Neurontin] 800 mg PO BID 04/15/17 [History] Insulin ASPART [Novolog Flexpen] 0 unit SQ ACHS PRN 04/15/17 [History] Insulin Glargine,Hum.rec.anlog [Lantus Solostar] 70 unit SQ HS 04/15/17 [History ] Lisinopril/Hydrochlorothiazide [Zestoretic 10-12.5 mg Tablet] 1 tab PO DAILY 05/22 [History] Pantoprazole Sodium [Protonix] 40 mg PO DAILY 04/15/17 [History] Simvastatin [Zocor] 80 mg PO DAILY 04/15/17 [History] clonazePAM [Klonopin] 0.5 mg PO BID 04/15/17 [History] Ondansetron HCl [Zofran] 4 mg PO Q6H #30 tablet 04/16/17 [Rx] Oxycodone HCl/Acetaminophen [Percocet 5-325 mg Tablet] 1 tab PO BID PRN #10 [Rx] Sucralfate [Carafate] 1 gm PO QIDAC #40 tablet 04/21/17 [Rx] Allergies/Adverse Reactions: 3 Allergy/AdvReac Type Severity Reaction Status Date / Time bupropion [From Wellbutrin] Allergy Hives Verified 04/14/17 22:34 latex Allergy Swelling Verified 04/14/17 22:34 of Lip/Tongue/Throat Medroxyprogesterone Allergy Hives Verified 04/14/17 22:34 [From Provera] Date of admission: 04/20/17 06:15 Primary care physician: Colleen Francis CNP Consults: 04/20/17 06:59 Consult to Nutrition [CONS] Routine Comment: Consulting Provider: NUTRITION Reason for Dietary Consult: MST Score Discharging clinician: Serena Sullivan Anticipated date of discharge: 04/21/17 - Patient Status Disposition: Home, Self-Care Condition: Good Functional capacity at discharge: independent ambulation Overall status at discharge: patient is back to baseline - Discharge Instructions Follow Up With: Colleen Francis CNP [Primary Care Provider] - Additional Instructions: Please follow up with 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 Please continue with soft diet after discharge Please resume all your home medications as prescribed by your primary care physician. - Diet and Activity Activity: increase activity as tolerated Diet: other (SOFT DIET ) Hospital course: Ms. Latif is a 47 year old female with PMH of DM, depression who was admitted for abd pain, n/v. She was seen by GI and underwent EGD which showed mild schatzki ring which was dilated, gastritis, and 2cm hiatal hernia. She was started on clear liquid diet and advanced to soft as tolerated. At this time patient is tolerating PO intake well with resolution of nausea and vomiting. Reports of improvement of abd pain. Pt will be discharged to home with follow up with PCP and GI after discharge. Patient and family(present at bedside) demonstrate understanding of her diagnosis and agree with the discharge care and plan. - Time Spent with Patient Total time spent providing and/or coordinating discharge services: Less than 30 minutes - Constitutional Vitals: Temp Pulse Resp BP Pulse Ox 98.0 F 64 14 129/89 94 04/21/17 11:49 04/21/17 11:49 04/21/17 11:49 04/21/17 11:49 04/21/17 11:49 General appearance: Present: A&O X 3, no acute distress, answers questions appropriately - Head Head exam: Present: atraumatic, normocephalic - Eye Eye exam: Present: conjuntiva pink, sclera anicteric - Respiratory Respiratory exam: Present: CTAB. Absent: accessory muscle use, rales, rhonchi, wheezes - Cardiovascular Cardiovascular exam: Present: RRR, +S1, +S2. Absent: diastolic murmur, gallop, rubs, systolic murmur - GI/Abdominal GI/Abdominal exam: Present: normal bowel sounds, soft, no peritoneal signs. Absent: distended, tenderness - Extremities Exam Extremities exam: Present: warm, radial pulses palpable and symmetrical. Absent : calf tenderness - Neurological Exam Neurological exam: Present: alert, oriented X3 - Psychiatric Psychiatric exam: Present: normal affect, normal mood
[2017-04-21] MEDS ORDERED: Insulin LISPRO 300 UNITS/3 ML VIAL SQ SCH (21:00)
--- NOTE | 2017-04-23 21:00 | Electrocardiograph Report ---
[place] [id number] Test Date: 2017-04-19 Pat Name: Judie Latif Department: 105 Room: [facility] Gender: F [employer]former: : 1970 Requested By: Andrew Ludwig Order Number: [id number] Reading MD: Arturo Gonzalez MD Measurements Intervals Marshall Rate: 53 P: 61 MI: 162 QRS: 19 QRSD: 69 T: 69 QT: 427 QTc: 409 Interpretive Statements SINUS BRADYCARDIA Electronically Signed On 04-23-2017 20:59:12 EDT by Arturo Gonzalez MD
== END 2017-04-21 15:55 | disposition home or self-care (01) | DRG 392 ==
LOC: 3NENU 21:49 → EMEROO 21:49 → 3NENU 04-20 02:40
PROVIDERS: ADMIT Family Medicine; ATTEND Internal Medicine
PROC: ENDOEBX (2017-04-20 09:30)

== ENCOUNTER 2021-09-22 14:10 | Observation (INO) ==
[2021-09-22] MEDS ORDERED: Ondansetron 4 MG/2 ML VIAL IVP ONE (16:08)
[2021-09-22 16:22] LABS: Hematocrit 46.4 % (35.3-44.9); Hemoglobin 16.2 g/dL (11.5-15.4); Mean Corpuscular HGB Conc 34.9 g/dL (31.6-35.5); Mean Corpuscular Hemoglobin 29.5 pg (28.0-33.3); Mean Corpuscular Volume 84.5 fL (83.0-100.0); Mean Platelet Volume 9.9 fL (9.4-12.4); Platelet Count 284 K/mcL (140-400); Red Blood Count 5.49 M/mcL (3.82-4.97); Red Cell Distribution Width 12.3 % (11.5-14.5); White Blood Count 8.2 K/mcL (4.3-11.1)
[2021-09-22] MEDS ORDERED: Gadolinium Contrast Agent (WT Based) IV PRN (16:28)
[2021-09-22 16:40] LABS: BUN/Creatinine Ratio 14 (6-26); Blood Urea Nitrogen 9 mg/dL (6-20); Calcium 9.6 mg/dL (8.6-10.3); Carbon Dioxide 26 mEq/L (23-29); Chloride 97 mEq/L (98-107); Glucose 476 mg/dL (70-105); Osmolality,Calculated 296 (280-300); Potassium 3.6 mEq/L (3.5-5.1); Sodium 133 mEq/L (136-145); eGFR For African Americans > 60 (> 60); eGFR For Non-African Americans > 60 (> 60)
[2021-09-22] MEDS ORDERED: 0.9 % Sodium Chloride 1,000 ML IVC ONE (16:52)
[2021-09-22] MEDS ORDERED: Morphine Sulfate 2 MG/ML SYRINGE IVP ONE (16:53)
[2021-09-22] MEDS ORDERED: *HR* HYDROmorphone 2 MG/ML SYRINGE IVP ONE (17:46)
[2021-09-22] MEDS ORDERED: Insulin LISPRO 300 UNITS/3 ML VIAL SUBQ ONE (17:47)
[2021-09-22 18:03] LABS: Bacteria,Urine Few per hpf (None-Few); Bilirubin,Urine Negative (Negative); Blood,Urine Negative (Negative); Clarity,Urine Clear (Clear); Color,Urine Light-Yellow (Yellow); Glucose,Urine (UA) >=1000 mg/dL (Normal); Ketones,Urine Negative (Negative); Leukocyte Esterase,Urine Negative (Negative); Nitrite,Urine Negative (Negative); Protein,Urine Negative (Neg-Trace); RBC,Urine 0-3 per hpf (0-3); Specific Gravity,Urine > 1.030 (1.010-1.025); Squamous Epithelial Cell,Urine Many per hpf (None-Few); Urobilinogen,Urine Normal (Normal)
[2021-09-22] MEDS ORDERED: Haloperidol Lactate 5 MG/ML VIAL IVP ONE (19:12)
[2021-09-22] MEDS ORDERED: Aspirin 325 MG TABLET PO ONE (19:40)
[2021-09-22 20:14] LABS: Magnesium 1.7 mg/dL (1.6-2.6)
[2021-09-22 21:12] LABS: Influenza A PCR Negative (Negative); Influenza B PCR Negative (Negative); Resp. Syncytial Virus PCR Negative (Negative)
[2021-09-22 21:14] LABS: SARS-CoV-2 by PCR (In House) Negative (Negative)
[2021-09-22] MEDS ORDERED: Melatonin 3 MG TABLET PO PRN (21:17)
[2021-09-22] MEDS ORDERED: Ondansetron ODT 4 MG TAB.RAPDIS SL PRN (21:17)
[2021-09-22] MEDS ORDERED: Acetaminophen 325 MG TABLET PO PRN (21:17)
[2021-09-22] MEDS ORDERED: MOM Conc 10 ML UD.LIQ PO PRN (21:17)
[2021-09-22] MEDS ORDERED: Naloxone 0.4 MG/ML INJ IVP PRN (21:17)
[2021-09-22] MEDS ORDERED: D5% in Water 1,000 ML IVC PRN (21:19)
[2021-09-22] MEDS ORDERED: Dextrose Gel 15 GM/37.5 ML TUBE PO PRN ×2 (21:19)
[2021-09-22] MEDS ORDERED: *HR* Dextrose 50 % in Water (Syg) 50 ML SYRINGE IVP PRN (21:19)
[2021-09-22] MEDS ORDERED: Perflutren Lipid Microsphere 1.3 ML in 0.9 % Sodium Chloride 8.7 ML IVP PRN (21:39)
[2021-09-22] MEDS: Insulin LISPRO 300 UNITS/3 ML VIAL SUBQ SCH (22:29)
[2021-09-22] MEDS: Insulin DETEMIR 100 UNIT/ML X5UNITS SUBQ SCH (22:30)
[2021-09-22] MEDS ORDERED: Topiramate 25 MG TABLET PO SCH (22:45)
[2021-09-23 02:40] LABS: Basophils # 0.1 K/mcL (0.0-0.2); Basophils % 0.9 %; Eosinophils # 0.2 K/mcL (0.0-0.6); Eosinophils % 2.7 %; Hematocrit 41.2 % (35.3-44.9); Immature Granulocytes % 0.9 % (0-4); Lymphocytes % 44.9 %; Mean Corpuscular HGB Conc 34.7 g/dL (31.6-35.5); Mean Corpuscular Hemoglobin 29.2 pg (28.0-33.3); Mean Corpuscular Volume 84.3 fL (83.0-100.0); Mean Platelet Volume 9.9 fL (9.4-12.4); Monocytes # 0.4 K/mcL (0.0-1.3); Monocytes % 5.6 %; Platelet Count 261 K/mcL (140-400); Red Blood Count 4.89 M/mcL (3.82-4.97); Red Cell Distribution Width 12.6 % (11.5-14.5); White Blood Count 6.6 K/mcL (4.3-11.1)
[2021-09-23 02:49] LABS: BUN/Creatinine Ratio 16 (6-26); Blood Urea Nitrogen 8 mg/dL (6-20); Calcium 8.9 mg/dL (8.6-10.3); Carbon Dioxide 28 mEq/L (23-29); Chloride 105 mEq/L (98-107); Glucose 163 mg/dL (70-105); Osmolality,Calculated 286 (280-300); Potassium 3.4 mEq/L (3.5-5.1); Sodium 137 mEq/L (136-145); eGFR For African Americans > 60 (> 60); eGFR For Non-African Americans > 60 (> 60)
[2021-09-23 02:52] LABS: Hemoglobin 14.3 g/dL (11.5-15.4)
[2021-09-23] MEDS: *HR* Heparin 5,000 UNIT/ML VIAL SQ SCH ×2 (04:52→17:15)
[2021-09-23] MEDS: Nicotine 21 MG PATCH.TD24 TD SCH ×2 (05:19→22:38)
[2021-09-23] MEDS ORDERED: Isovue-370 500 ML BOTTLE IVP ONE (08:33)
[2021-09-23] MEDS: *HR* HYDROcodone/Acet 5/325 mg TABLET PO PRN ×3 (08:46→22:38)
[2021-09-23] MEDS: Aspirin 325 MG TABLET PO SCH (08:46)
[2021-09-23] MEDS: Insulin LISPRO 300 UNITS/3 ML VIAL SUBQ SCH ×3 (08:47→17:10)
[2021-09-23] MEDS: Valproic Acid INJ 800 MG in 0.9 % Sodium Chloride 100 ML IVPB SCH ×2 (13:42→21:25)
[2021-09-23] MEDS: Gabapentin 400 MG CAPSULE PO SCH ×2 (13:57→21:23)
[2021-09-23] MEDS ORDERED: Fluticasone Propionate Nasal 50 MCG/SPRAY BOTTLE NS PRN (15:12)
[2021-09-23] MEDS: Insulin DETEMIR 100 UNIT/ML X5UNITS SUBQ SCH (21:24)
[2021-09-24 02:42] LABS: Basophils % 0.6 %; Eosinophils # 0.2 K/mcL (0.0-0.6); Eosinophils % 2.6 %; Hematocrit 40.4 % (35.3-44.9); Hemoglobin 13.9 g/dL (11.5-15.4); Immature Granulocytes % 1.2 % (0-4); Lymphocytes # 3.6 K/mcL (0.6-4.6); Lymphocytes % 56.3 %; Mean Corpuscular HGB Conc 34.4 g/dL (31.6-35.5); Mean Corpuscular Hemoglobin 29.7 pg (28.0-33.3); Mean Corpuscular Volume 86.3 fL (83.0-100.0); Mean Platelet Volume 10.1 fL (9.4-12.4); Monocytes # 0.4 K/mcL (0.0-1.3); Monocytes % 5.7 %; Neutrophils # 2.2 K/mcL (1.6-8.9); Platelet Count 247 K/mcL (140-400); Red Blood Count 4.68 M/mcL (3.82-4.97); Red Cell Distribution Width 12.5 % (11.5-14.5); Segmented Neutrophils % 33.6 %; White Blood Count 6.5 K/mcL (4.3-11.1)
[2021-09-24 02:54] LABS: BUN/Creatinine Ratio 9 (6-26); Blood Urea Nitrogen 6 mg/dL (6-20); Calcium 8.9 mg/dL (8.6-10.3); Carbon Dioxide 29 mEq/L (23-29); Chloride 102 mEq/L (98-107); Glucose 276 mg/dL (70-105); Osmolality,Calculated 293 (280-300); Sodium 138 mEq/L (136-145); eGFR For African Americans > 60 (> 60); eGFR For Non-African Americans > 60 (> 60)
[2021-09-24] MEDS: *HR* HYDROcodone/Acet 5/325 mg TABLET PO PRN (05:26)
[2021-09-24] MEDS: *HR* Heparin 5,000 UNIT/ML VIAL SQ SCH ×2 (05:27→16:53)
[2021-09-24] MEDS: Valproic Acid INJ 800 MG in 0.9 % Sodium Chloride 100 ML IVPB SCH ×3 (05:27→21:06)
[2021-09-24] MEDS: hydroCHLOROthiazide 25 MG TABLET PO SCH (08:40)
[2021-09-24] MEDS: Gabapentin 400 MG CAPSULE PO SCH ×2 (08:40→20:08)
[2021-09-24] MEDS: Loratadine 10 MG TABLET PO SCH (08:40)
[2021-09-24] MEDS: lisinopriL 10 MG TABLET PO SCH (08:40)
[2021-09-24] MEDS: Aspirin 325 MG TABLET PO SCH (08:40)
[2021-09-24] MEDS: Insulin LISPRO 300 UNITS/3 ML VIAL SUBQ SCH ×3 (08:41→16:52)
[2021-09-24] MEDS ORDERED: Ibuprofen 600 MG TABLET PO PRN (11:38)
[2021-09-24] MEDS ORDERED: Insulin DETEMIR 100 UNIT/ML X5UNITS SUBQ SCH (21:00)
[2021-09-24] MEDS ORDERED: tiZANidine 4 MG TABLET PO SCH (21:00)
[2021-09-25] MEDS: Valproic Acid INJ 800 MG in 0.9 % Sodium Chloride 100 ML IVPB SCH (05:02)
[2021-09-25] MEDS: *HR* Heparin 5,000 UNIT/ML VIAL SQ SCH (05:03)
[2021-09-25] MEDS: Nicotine 21 MG PATCH.TD24 TD SCH (08:56)
[2021-09-25] MEDS: Loratadine 10 MG TABLET PO SCH (08:57)
[2021-09-25] MEDS: Gabapentin 400 MG CAPSULE PO SCH (08:57)
[2021-09-25] MEDS: Aspirin 325 MG TABLET PO SCH (08:57)
[2021-09-25] MEDS: hydroCHLOROthiazide 25 MG TABLET PO SCH (08:57)
[2021-09-25] MEDS: Insulin LISPRO 300 UNITS/3 ML VIAL SUBQ SCH (08:59)
[2021-09-25] MEDS: lisinopriL 10 MG TABLET PO SCH (09:00)
[2021-09-25 11:09] VITALS: BP 144/88; PULSE 79; TEMP 97.9; O2SAT 98
== END 2021-09-25 11:20 | disposition home or self-care (01) ==
LOC: 3ANU 14:10 → EMEROOARM 14:10 → SUATTDRO 19:57 → 3ANU 20:51
PROVIDERS: ADMIT Internal Medicine; ATTEND Family Medicine